=== PATIENT | female | born 1935 | race Caucasian/White ===

== ENCOUNTER 2023-10-30 19:05 | Emergency (ER) | payer OTHER, SELFPAY ==
[~2023-10-30] VITALS: Ht 162.6 cm; Wt 62.0 kg
[2023-10-30 20:29] LABS: BASO % 0.5 % (0.0-1.0); EOS # 0.1 10^3/uL (0.0-0.5); EOS % 0.8 % (0.0-3.0); HEMATOCRIT 39.1 % (36.0-47.0); HEMOGLOBIN 13.1 g/dl (12.0-15.5); LYMPH # 2.1 10^3/uL (1.5-5.0); LYMPH % 33.7 % (24.0-44.0); MEAN CORPUSCULAR HEMOGLOBIN 33.2 pg (27.0-33.0); MEAN CORPUSCULAR HGB CONC 33.5 g/dl (32.0-36.5); MEAN CORPUSCULAR VOLUME 99.2 fl (80.0-96.0); MONO # 0.7 10^3/uL (0.0-0.8); NEUTROPHILS # 3.4 10^3/uL (1.5-8.5); NEUTROPHILS % 53.7 % (36.0-66.0); PLATELET COUNT, AUTOMATED 188 10^3/uL (150-450); RED BLOOD COUNT 3.94 10^6/uL (4.00-5.40); WHITE BLOOD COUNT 6.3 10^3/uL (4.0-10.0)
[2023-10-30 20:51] LABS: CK-MB VALUE MASS < 1.0 NG/ML (<3.6)
[2023-10-30 20:52] LABS: C REACTIVE PROTEIN QUANTITATIV < 0.40 MG/DL (<1.0)
[2023-10-30 20:53] LABS: CPK CREATINE PHOSPHOKINASE 90 U/L (34-145); MB/CK RELATIVE INDEX 1.11 (< OR =4)
[2023-10-30 20:54] LABS: ALBUMIN 2.9 G/DL (3.2-5.2); ALKALINE PHOSPHATASE 95 U/L (46-116); ALT/SGPT 15 U/L (7.0-40); AST/SGOT 13 U/L (<34); BILIRUBIN,TOTAL 0.3 MG/DL (0.3-1.2); BLOOD UREA NITROGEN 27 MG/DL (9-23); CALCIUM LEVEL 8.8 MG/DL (8.3-10.6); CARBON DIOXIDE LEVEL 26 MMOL/L (20-31); CHLORIDE LEVEL 108 MMOL/L (98-107); CREATININE FOR GFR 0.87 MG/DL (0.55-1.30); GLOMERULAR FILTRATION RATE > 60.0 (>32); GLUCOSE, FASTING 94 MG/DL (74-106); POTASSIUM SERUM 4.3 MMOL/L (3.5-5.1); SODIUM LEVEL 142 MMOL/L (136-145); TOTAL PROTEIN 5.7 G/DL (5.7-8.2)
[2023-10-30 21:58] LABS: ERYTHROCYTE SEDIMENTATION RATE 4 mm/hr (0-30)
[2023-10-30 23:53] VITALS: BP 147/72; TEMP 97.4; O2SAT 97
== END 2023-10-30 23:57 | disposition home or self-care (01) ==
LOC: M ED 19:05
DX: M25.512 Pain in left shoulder (principal)

== ENCOUNTER → 2024-09-09 | Outpatient (REF) | payer OTHER, MEDICAID ==
[2024-09-09 13:41] LABS: HEMATOCRIT 33.2 % (36.0-47.0); HEMOGLOBIN 10.7 g/dl (12.0-15.5); MEAN CORPUSCULAR HEMOGLOBIN 32.7 pg (27.0-33.0); MEAN CORPUSCULAR HGB CONC 32.2 g/dl (32.0-36.5); MEAN CORPUSCULAR VOLUME 101.5 fl (80.0-96.0); PLATELET COUNT, AUTOMATED 309 10^3/uL (150-450); RED BLOOD COUNT 3.27 10^6/uL (4.00-5.40); WHITE BLOOD COUNT 8.7 10^3/uL (4.0-10.0)
[2024-09-09 14:04] LABS: ALBUMIN 2.7 G/DL (3.2-5.2); ALKALINE PHOSPHATASE 89 U/L (35-104); ALT/SGPT 16 U/L (7.0-40); AST/SGOT 15 U/L (<34); BILIRUBIN,TOTAL 0.9 MG/DL (0.3-1.2); BLOOD UREA NITROGEN 27 MG/DL (9-23); CALCIUM LEVEL 8.7 MG/DL (8.3-10.6); CARBON DIOXIDE LEVEL 29 MMOL/L (20-31); CHLORIDE LEVEL 109 MMOL/L (98-107); CHOLESTEROL LEVEL 122 MG/DL (<200); CHOLESTEROL RISK RATIO 3.16 (<5); CREATININE FOR GFR 0.75 MG/DL (0.55-1.30); GLOMERULAR FILTRATION RATE > 60.0 (>32); GLUCOSE, FASTING 83 MG/DL (74-106); HDL CHOLESTEROL 38.6 MG/DL (>40); NON-HDL-C 83.4 MG/DL; POTASSIUM SERUM 4.2 MMOL/L (3.5-5.1); SODIUM LEVEL 146 MMOL/L (136-145); TOTAL PROTEIN 5.8 G/DL (5.7-8.2); TRIGLYCERIDES LEVEL 112 MG/DL (<150)
[2024-09-09 14:06] LABS: TOTAL 25(OH) VITAMIN D 35.2 NG/ML (20.0-100.0)
== END ==
LOC: SKLAB2 12:37
PROVIDERS: ATTEND Internal Medicine
DX: E55.9 Vitamin D deficiency, unspecified (principal); E78.5 Hyperlipidemia, unspecified; F03.90 Unspecified dementia, unspecified severity, without behavioral disturbance, psychotic disturbance, mood disturbance, and anxiety

== ENCOUNTER → 2024-09-16 | Outpatient (REF) ==
[2024-09-16 21:07] LABS: AMORPHOUS SEDIMENT MODERATE (NEGATIVE); APPEARANCE, URINE CLOUDY (CLEAR); BACTERIA, URINE AUTO 2+ (NEGATIVE); BILIRUBIN, URINE AUTO NEGATIVE (NEGATIVE); BLOOD, URINE BLOOD NEGATIVE (NEGATIVE); COLOR, URINE YELLOW (YELLOW); GLUCOSE, URINE (UA) AUTO NEGATIVE (NEGATIVE); KETONE, URINE AUTO TRACE mg/dL (NEGATIVE); LEUKOCYTE ESTERASE, URINE AUTO NEGATIVE (NEGATIVE); MUCUS, URINE SMALL (NEGATIVE); NITRITE, URINE AUTO NEGATIVE (NEGATIVE); PROTEIN, URINE AUTO NEGATIVE (NEGATIVE); RBC, URINE AUTO 0 /HPF (0-3); SQUAMOUS EPITHELIAL CELL UR AU 5 /HPF (0-6); WBC, URINE AUTO 2 /HPF (0-3)
== END ==
LOC: SKLAB2 20:30
PROVIDERS: ATTEND Nurse Practitioner Family
DX: R82.998 Other abnormal findings in urine (principal)

== ENCOUNTER → 2024-09-16 | Outpatient (REF) | payer OTHER, MEDICAID | LOC: SKLAB2 11:47 | PROVIDERS: ATTEND Internal Medicine | DX: R82.998 Other abnormal findings in urine (principal); R30.0 Dysuria; Z53.9 Procedure and treatment not carried out, unspecified reason ==

== ENCOUNTER 2024-10-07 08:05 | Inpatient (IN) | payer OTHER, MEDICAID ==
[2024-10-07] MEDS: ONDANSETRON 4MG 2ML VIAL IV ONE (08:58)
[2024-10-07] MEDS: MORPHINE 2 MG/ML 1ML VIAL IV ONE (08:58)
[2024-10-07 09:11] LABS: BASO % 0.6 % (0.0-1.0); EOS # 0.1 10^3/uL (0.0-0.5); EOS % 1.5 % (0.0-3.0); HEMATOCRIT 36.4 % (36.0-47.0); HEMOGLOBIN 11.9 g/dl (12.0-15.5); LYMPH # 1.3 10^3/uL (1.5-5.0); MEAN CORPUSCULAR HEMOGLOBIN 33.4 pg (27.0-33.0); MEAN CORPUSCULAR HGB CONC 32.7 g/dl (32.0-36.5); MEAN CORPUSCULAR VOLUME 102.2 fl (80.0-96.0); MONO # 0.6 10^3/uL (0.0-0.8); NEUTROPHILS # 4.2 10^3/uL (1.5-8.5); NEUTROPHILS % 67.6 % (36.0-66.0); PLATELET COUNT, AUTOMATED 252 10^3/uL (150-450); RED BLOOD COUNT 3.56 10^6/uL (4.00-5.40); WHITE BLOOD COUNT 6.2 10^3/uL (4.0-10.0)
[2024-10-07 09:32] LABS: BLOOD UREA NITROGEN 22 MG/DL (9-23); CARBON DIOXIDE LEVEL 27 MMOL/L (20-31); CHLORIDE LEVEL 107 MMOL/L (98-107); CREATININE FOR GFR 0.64 MG/DL (0.55-1.30); GLOMERULAR FILTRATION RATE > 60.0 (>32); GLUCOSE, FASTING 90 MG/DL (74-106); POTASSIUM SERUM 4.6 MMOL/L (3.5-5.1); SODIUM LEVEL 144 MMOL/L (136-145)
[2024-10-07 10:25] VITALS: O2SAT 86
[2024-10-07 11:03] LABS: INR 1.03; PROTHROMBIN TIME 13.8 SECONDS (12.5-14.5)
[2024-10-07 11:13] LABS: KETONE, URINE AUTO RFX NEGATIVE (NEGATIVE); LEUKOCYTE ESTERASE UR AUTO RFX NEGATIVE (NEGATIVE); MUCUS, URINE RFX MODERATE (NEGATIVE); NITRITE, URINE AUTO RFX NEGATIVE (NEGATIVE); RBC, URINE AUTO RFX 1 /HPF (0-3); SQUAM EPITHELIAL CELL UR AURFX 0 /HPF (0-6); WBC, URINE AUTO RFX 4 /HPF (0-3)
[2024-10-07 11:13] LABS: CK-MB VALUE MASS < 1.0 NG/ML (<3.6); CPK CREATINE PHOSPHOKINASE 47 U/L (34-145); MB/CK RELATIVE INDEX 2.12 (< OR =4)
[2024-10-07] MEDS ORDERED: ONDANSETRON 4MG 2ML VIAL IV PRN (11:55)
[2024-10-07] MEDS ORDERED: MORPHINE 4 MG/ML 1ML VIAL IV PRN (11:55)
[2024-10-07] MEDS: PANTOPRAZOLE 40MG VIAL IV SCH (12:53)
[2024-10-07] MEDS ORDERED: ATOR1TAB21 PO (13:10)
[2024-10-07] MEDS ORDERED: ARIC1TAB PO (13:10)
[2024-10-07] MEDS ORDERED: DOCU100C16 PO (13:10)
[2024-10-07] MEDS ORDERED: LEXA1TAB2 PO (13:10)
[2024-10-07] MEDS ORDERED: ACET1TAB55 PO (13:10)
[2024-10-07 13:13] LABS: INR 1.04; PARTIAL THROMBOPLASTIN TIME 30.9 SECONDS (24.8-34.2); PROTHROMBIN TIME 13.9 SECONDS (12.5-14.5)
[2024-10-07] MEDS ORDERED: CELE1CAP99 PO (13:15)
[2024-10-07] MEDS ORDERED: DEPA250T32 PO (13:15)
[2024-10-07] MEDS ORDERED: MILK400S12 PO (13:17)
[2024-10-07] MEDS ORDERED: HOME MED LIST COMPLETE! XX SCH (13:20)
[2024-10-07] MEDS ORDERED: MOM 30ML SUSPENSION UDC PO PRN (16:05)
[2024-10-07] MEDS: MORPHINE 2 MG/ML 1ML VIAL IV PRN (17:15)
[2024-10-07 18:05] VITALS: O2SAT 84
[2024-10-07 18:06] VITALS: O2SAT 94
[2024-10-07 19:47] VITALS: BP 113/58; TEMP 97.3; O2SAT 92
[2024-10-07] MEDS: SENNA 8.6 MG TAB (SENOKOT) PO SCH (20:47)
[2024-10-07] MEDS: DONEPEZIL 5 MG TAB PO SCH (20:47)
[2024-10-07] MEDS: DIVALPROEX 250MG TAB PO SCH (20:47)
[2024-10-07] MEDS: DOCUSATE SODIUM 100MG CAPSULE PO SCH (20:48)
[2024-10-08] VITALS (9 sets, daily range): BP systolic 115–132; BP diastolic 53–69; TEMP 96.8–97.3; O2SAT 91–94
[2024-10-08 06:43] LABS: HEMATOCRIT 34.7 % (36.0-47.0); HEMOGLOBIN 11.3 g/dl (12.0-15.5); MEAN CORPUSCULAR HEMOGLOBIN 33.9 pg (27.0-33.0); MEAN CORPUSCULAR HGB CONC 32.6 g/dl (32.0-36.5); MEAN CORPUSCULAR VOLUME 104.2 fl (80.0-96.0); PLATELET COUNT, AUTOMATED 238 10^3/uL (150-450); RED BLOOD COUNT 3.33 10^6/uL (4.00-5.40); WHITE BLOOD COUNT 7.2 10^3/uL (4.0-10.0)
[2024-10-08 07:02] LABS: ALBUMIN 2.9 G/DL (3.2-5.2); ALKALINE PHOSPHATASE 108 U/L (35-104); ALT/SGPT 13 U/L (7.0-40); AST/SGOT 12 U/L (<34); BILIRUBIN,TOTAL 0.5 MG/DL (0.3-1.2); BLOOD UREA NITROGEN 25 MG/DL (9-23); CALCIUM LEVEL 8.7 MG/DL (8.3-10.6); CARBON DIOXIDE LEVEL 28 MMOL/L (20-31); CHLORIDE LEVEL 108 MMOL/L (98-107); CREATININE FOR GFR 0.69 MG/DL (0.55-1.30); GLOMERULAR FILTRATION RATE > 60.0 (>32); GLUCOSE, FASTING 97 MG/DL (74-106); POTASSIUM SERUM 4.6 MMOL/L (3.5-5.1); SODIUM LEVEL 144 MMOL/L (136-145); TOTAL PROTEIN 5.7 G/DL (5.7-8.2)
[2024-10-08] MEDS: ATORVASTATIN 20 MG TAB PO SCH (08:33)
[2024-10-08] MEDS: ESCITALOPRAM OXALATE 10 MG TAB (LEXAPRO) PO SCH (08:33)
[2024-10-08] MEDS ORDERED: ONDANSETRON 4MG 2ML VIAL As Ordered ONE (09:44)
[2024-10-08] MEDS ORDERED: ROCURONIUM BROMIDE 50MG/5ML VIAL As Ordered ONE (09:44)
[2024-10-08] MEDS ORDERED: LIDOCAINE 2% 100MG/5ML SDV (FOR ANES.) As Ordered ONE (09:44)
[2024-10-08] MEDS ORDERED: propofoL 200 MG/20 ML VIAL As Ordered ONE (09:44)
[2024-10-08] MEDS ORDERED: SUGAMMADEX SODIUM 500 MG/5 ML VIAL (BRIDION) As Ordered ONE (09:44)
[2024-10-08] MEDS: dexAMETHasone 10MG/1ML VIAL PRES.FREE PN ONE (11:35)
[2024-10-08] MEDS: ROPIvacaine 0.5% 30ML VIAL PN ONE (11:35)
[2024-10-08] MEDS ORDERED: fentaNYL 100 MCG/2 ML INJECTION IV PRN ×3 (11:35→15:00)
[2024-10-08] MEDS ORDERED: fentaNYL 100 MCG/2 ML INJECTION As Ordered ONE (12:04)
[2024-10-08] MEDS ORDERED: ONDANSETRON 4MG 2ML VIAL IV PRN ×2 (13:00→15:05)
[2024-10-08] MEDS ORDERED: oxyCODONE 5MG TAB PO PRN ×2 (13:00→15:05)
[2024-10-08] MEDS ORDERED: HYDROMORPHONE HCL 0.5 MG/ 0.5 ML SYRINGE IV PRN ×2 (13:00→15:00)
[2024-10-08] MEDS: ceFAZolin SODIUM 2 GM VIAL As Ordered ONE (13:01)
[2024-10-08] MEDS ORDERED: ACETAMINOPHEN 1000MG/100ML IV BAG As Ordered ONE (13:13)
[2024-10-08] MEDS: VANCOMYCIN 1000MG/20ML VIAL As Ordered ONE (14:25)
[2024-10-08] MEDS: ceFAZolin SODIUM 2 GM in DEXTROSE 5% (D5W) ADV/MINI-BAG 50 ML IV SCH (21:54)
[2024-10-09] VITALS (9 sets, daily range): BP systolic 98–120; BP diastolic 49–58; TEMP 97–97.5; O2SAT 84–95
[2024-10-09 06:14] LABS: HEMATOCRIT 31.6 % (36.0-47.0); HEMOGLOBIN 10.2 g/dl (12.0-15.5); MEAN CORPUSCULAR HEMOGLOBIN 33.1 pg (27.0-33.0); MEAN CORPUSCULAR HGB CONC 32.3 g/dl (32.0-36.5); MEAN CORPUSCULAR VOLUME 102.6 fl (80.0-96.0); PLATELET COUNT, AUTOMATED 217 10^3/uL (150-450); RED BLOOD COUNT 3.08 10^6/uL (4.00-5.40); WHITE BLOOD COUNT 6.7 10^3/uL (4.0-10.0)
[2024-10-09 06:48] LABS: ALBUMIN 2.7 G/DL (3.2-5.2); ALKALINE PHOSPHATASE 94 U/L (35-104); ALT/SGPT 13 U/L (7.0-40); AST/SGOT 16 U/L (<34); BILIRUBIN,TOTAL 0.3 MG/DL (0.3-1.2); BLOOD UREA NITROGEN 24 MG/DL (9-23); CALCIUM LEVEL 8.8 MG/DL (8.3-10.6); CARBON DIOXIDE LEVEL 28 MMOL/L (20-31); CHLORIDE LEVEL 104 MMOL/L (98-107); CREATININE FOR GFR 0.58 MG/DL (0.55-1.30); GLOMERULAR FILTRATION RATE > 60.0 (>32); GLUCOSE, FASTING 139 MG/DL (74-106); POTASSIUM SERUM 4.5 MMOL/L (3.5-5.1); SODIUM LEVEL 140 MMOL/L (136-145); TOTAL PROTEIN 5.4 G/DL (5.7-8.2)
[2024-10-09] MEDS ORDERED: PERCOCET 5MG/325MG TAB PO PRN (18:35)
[2024-10-10 03:40] VITALS: BP 125/57; TEMP 97; O2SAT 92
[2024-10-10 06:14] LABS: HEMATOCRIT 30.2 % (36.0-47.0); HEMOGLOBIN 9.8 g/dl (12.0-15.5); MEAN CORPUSCULAR HEMOGLOBIN 33.3 pg (27.0-33.0); MEAN CORPUSCULAR HGB CONC 32.5 g/dl (32.0-36.5); MEAN CORPUSCULAR VOLUME 102.7 fl (80.0-96.0); PLATELET COUNT, AUTOMATED 201 10^3/uL (150-450); RED BLOOD COUNT 2.94 10^6/uL (4.00-5.40); WHITE BLOOD COUNT 7.9 10^3/uL (4.0-10.0)
[2024-10-10 06:39] LABS: ALBUMIN 2.5 G/DL (3.2-5.2); ALKALINE PHOSPHATASE 85 U/L (35-104); ALT/SGPT 10 U/L (7.0-40); AST/SGOT 15 U/L (<34); BILIRUBIN,TOTAL 0.3 MG/DL (0.3-1.2); BLOOD UREA NITROGEN 25 MG/DL (9-23); CALCIUM LEVEL 8.4 MG/DL (8.3-10.6); CARBON DIOXIDE LEVEL 30 MMOL/L (20-31); CHLORIDE LEVEL 103 MMOL/L (98-107); CREATININE FOR GFR 0.64 MG/DL (0.55-1.30); GLOMERULAR FILTRATION RATE > 60.0 (>32); GLUCOSE, FASTING 80 MG/DL (74-106); SODIUM LEVEL 141 MMOL/L (136-145); TOTAL PROTEIN 5.1 G/DL (5.7-8.2)
[2024-10-10] MEDS: ENOXAPARIN 40MG/0.4ML SYRINGE (J1650 PER 10MG) SC SCH (09:27)
[2024-10-10 12:00] VITALS: BP 133/65; TEMP 97.2; O2SAT 93
[2024-10-10] MEDS: ACETAMINOPHEN 325 MG TAB PO PRN (13:52)
[2024-10-10 20:00] VITALS: BP 124/56; TEMP 96.6; O2SAT 93
[2024-10-11] VITALS: O2SAT 93
[2024-10-11 04:17] VITALS: BP 142/65; TEMP 97.3; O2SAT 90
[2024-10-11 05:39] LABS: HEMATOCRIT 31.5 % (36.0-47.0); HEMOGLOBIN 10.4 g/dl (12.0-15.5); MEAN CORPUSCULAR HEMOGLOBIN 33.4 pg (27.0-33.0); MEAN CORPUSCULAR VOLUME 101.3 fl (80.0-96.0); PLATELET COUNT, AUTOMATED 206 10^3/uL (150-450); RED BLOOD COUNT 3.11 10^6/uL (4.00-5.40); WHITE BLOOD COUNT 6.6 10^3/uL (4.0-10.0)
[2024-10-11 06:05] LABS: ALBUMIN 2.5 G/DL (3.2-5.2); ALKALINE PHOSPHATASE 88 U/L (35-104); ALT/SGPT 10 U/L (7.0-40); AST/SGOT 15 U/L (<34); BILIRUBIN,TOTAL 0.4 MG/DL (0.3-1.2); BLOOD UREA NITROGEN 19 MG/DL (9-23); CALCIUM LEVEL 8.3 MG/DL (8.3-10.6); CARBON DIOXIDE LEVEL 30 MMOL/L (20-31); CHLORIDE LEVEL 104 MMOL/L (98-107); CREATININE FOR GFR 0.56 MG/DL (0.55-1.30); GLOMERULAR FILTRATION RATE > 60.0 (>32); GLUCOSE, FASTING 87 MG/DL (74-106); POTASSIUM SERUM 3.9 MMOL/L (3.5-5.1); SODIUM LEVEL 140 MMOL/L (136-145); TOTAL PROTEIN 5.1 G/DL (5.7-8.2)
[2024-10-11 12:00] VITALS: BP 141/65; TEMP 97.2; O2SAT 97
[2024-10-11 20:16] VITALS: BP 143/64; TEMP 97.5; O2SAT 94
[2024-10-12 04:45] VITALS: BP 146/66; TEMP 97.3; O2SAT 94
[2024-10-13 05:20] VITALS: BP 155/68; TEMP 97.2; O2SAT 92
[2024-10-14 04:00] VITALS: BP 141/69; TEMP 97.2; O2SAT 96
[2024-10-14 20:50] VITALS: TEMP 97.5
[2024-10-14 20:51] VITALS: TEMP 98.4
[2024-10-14 23:30] VITALS: O2SAT 95
[2024-10-15] MEDS: PERCOCET 5MG/325MG TAB PO PRN (00:12)
[2024-10-15 02:43] VITALS: O2SAT 91
[2024-10-15 04:00] VITALS: BP 127/53; TEMP 97.2; O2SAT 90
[2024-10-15] MEDS ORDERED: ACET1TAB55 PO (10:56)
[2024-10-15] MEDS ORDERED: ASPI81CH33 PO (10:58)
== END 2024-10-15 12:45 | DRG 493 ==
LOC: EDBD 08:05 → M ED 08:05 → M ED INP 11:49 → M MSPAV 16:46
PROVIDERS: ADMIT Internal Medicine; ATTEND Student in an Organized Health Care Education/Training Program
PROC: 0QSJ04Z Reposition Right Fibula with Internal Fixation Device, Open Approach (ICD-10-PCS; 2024-10-08)
PROC: 0QSG04Z Reposition Right Tibia with Internal Fixation Device, Open Approach (ICD-10-PCS; principal; 2024-10-08 12:15)
DX: S82.841A Displaced bimalleolar fracture of right lower leg, initial encounter for closed fracture (principal); J98.11 Atelectasis; S82.831A Other fracture of upper and lower end of right fibula, initial encounter for closed fracture; F32.A Depression, unspecified; E78.5 Hyperlipidemia, unspecified; F03.90 Unspecified dementia, unspecified severity, without behavioral disturbance, psychotic disturbance, mood disturbance, and anxiety; R09.02 Hypoxemia; W19.XXXA Unspecified fall, initial encounter; R26.89 Other abnormalities of gait and mobility; G47.33 Obstructive sleep apnea (adult) (pediatric); Z79.899 Other long term (current) drug therapy; Y92.129 Unspecified place in nursing home as the place of occurrence of the external cause

== ENCOUNTER → 2024-10-22 | Outpatient (CLI) | payer OTHER, MEDICAID, MEDICARE ==
[~2024-10-22] MED LIST: ACET1TAB55 PO; ARIC1TAB PO; ASPI81CH33 PO; ATOR1TAB21 PO; CELE1CAP99 PO; DEPA250T32 PO; DOCU100C16 PO; LEXA1TAB2 PO; MILK400S12 PO
== END ==
LOC: M SOG 07:51
PROVIDERS: ATTEND Orthopaedic Surgery
DX: Z47.89 Encounter for other orthopedic aftercare (principal); M25.571 Pain in right ankle and joints of right foot

== ENCOUNTER → 2024-11-20 | Outpatient (CLI) | payer OTHER, MEDICAID, MEDICARE | LOC: M SOG 11:21 | PROVIDERS: ATTEND Orthopaedic Surgery | DX: S82.841D Displaced bimalleolar fracture of right lower leg, subsequent encounter for closed fracture with routine healing (principal) ==